=== PATIENT | female | born 1985 | race Caucasian/White ===

== ENCOUNTER → 2017-05-11 | Day surgery (SDC) | payer OTHER ==
[~2017-05-11] MED LIST: APREPITANT 40 MG CAP ONE; FERRIC SUBSULFATE 8 ML TOP SOLN ONE; IODINE (STRONG-LUGOLS) SOLN 20 DROP/1 ML BTL ONE; KETOROLAC TROMETHAMINE 30 MG/ML (IVP) VIAL IV PUSH ONE; LACTATED RINGER'S 1000 ML INJ 1,000 ML ONE; LIDOCAINE 1%/EPINEPHrine 1:100,000 SOLN 20 ML VIAL ONE; MIDAZOLAM HCL 2 MG/2 ML VIAL ONE; ONDANSETRON HCL 4 MG/2 ML VIAL IV PUSH ONE; PROPOFOL 200 MG/20 ML AMP IV ONE; ceFAZolin INJ 1,000 MG VIAL ONE
--- NOTE | 2017-05-12 08:48 | MH ---
cc: SARKIS AREVALO DATE OF ADMISSION: 05/11/2017 REASON FOR PROCEDURE High-grade lesion of the cervix. SCHEDULED PROCEDURE Cold knife cone. HISTORY OF PRESENT ILLNESS The patient is a 31-year-old white female, 0 with LMP 04/27/2017, who had been found to have an abnormal Pap smear confirmed on colposcopy with histology and for whom counseling led her to the decision for a cold knife cone. PAST MEDICAL HISTORY She is otherwise in excellent health. She uses a control pill for contraception. She is interested in having children in the future. She has a history of bilateral hernia repair in the past but otherwise no other surgical conditions. She did consider the Vax program but desired for the cold knife cone. SOCIAL HISTORY She does not smoke, drink or use illicit drugs. PHYSICAL EXAMINATION GENERAL: She is slim female. VITAL SIGNS: 110 pounds, 5 feet 1 inch. Blood pressure 100/60. ALLERGIES: She has no allergies. NECK: She has no thyromegaly. LUNGS: Lungs were clear. HEART: Rate and rhythm are regular. BREASTS: Without dominant mass. ABDOMEN: Benign. PELVIS: Perineum was estrogenized, vault is elevated, cervix was nulliparous. Lesion as discussed with colonoscopy. Uterus was anteverted, mobile, nontender. EXTREMITIES: Unremarkable. IMPRESSION AT THIS TIME High-grade lesion in a 31-year-old, desirous of minimally invasive surgery to be able to have children in the future. We have discussed cerclage after cervical incompetence and ways to minimize the amount of tissue taken. She has signed consents and agreed to proceed on Wednesday. Sarkis Arevalo MD PPC/TLL /8:24 AM /8:29 AM
--- NOTE | 2017-05-13 06:42 | MP ---
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 POSTOPERATIVE DIAGNOSIS High-grade squamous intraepithelial lesion biopsy-proven with HPV 16. PROCEDURE Cold knife cone biopsy and endocervical curettage. ANESTHESIA General SURGEON Charlene Arevalo MD FINDINGS Lugol's stain revealed the extent of the ectocervical lesion which was excised in its entirety and a single cone biopsy using a cold knife cone followed by an ECC and then cautery and suture. It was labeled at 12 o'clock and sent to pathology. She tolerated the procedure well. PROCEDURE The patient was identified as Antoinette Pierce, her permit was reviewed. She was given one gram of Ancef. She was taken to the operating room, placed under general endotracheal anesthesia in the lithotomy position. A time-out was performed with all in attendance and she had received her antibiotic. Her bladder was emptied after she was prepped and draped and then a weighted speculum was placed in the vagina and the anterior vagina elevated. The cervix was painted with Lugol's and evaluated. Then a stitch was placed at 12 o'clock for traction. Two stitches were placed at nine and three and tied off to decrease pulse pressure from the descending branch of the uterine artery and then a final stitch was placed for traction on the posterior edge. Then the long blade was used beginning at 6 o'clock and cutting in a clockwise fashion and a single pass, a conical piece of the cervix which came out a single plane with minimal bleeding. She had also been injected with Marcaine which probably reduced the bleeding. Then an ECC was performed and then the area was burned with a Bovie on coagulation. Then using the 12 o'clock and 6 o'clock stitch, they were tied together to help compress the cone bed and minimize bleeding. At the end of the procedure, no bleeding was noted and she was placed in dorsal supine position, awoken and taken to the recovery room in stable condition. MD BRAULIO Brower/TIFFANIE /8:21 AM /6:39 AM
== END | disposition home or self-care (01) ==
LOC: ESDC 09:04
PROVIDERS: ATTEND Obstetrics & Gynecology
DX: R87.613 High grade squamous intraepithelial lesion on cytologic smear of cervix (HGSIL) (principal)
CPT/HCPCS: 00940; 57520; 88305; 88307; J0690; J1885; J2250; J2405; J3010; J7120; J8501